=== PATIENT | male | born 1955 | race Caucasian/White ===

== ENCOUNTER → 2017-07-31 | Day surgery (SDC) | payer OTHER ==
[~2017-07-31] VITALS: Ht 182.9 cm; Wt 83.9 kg
[2017-07-31 06:59] VITALS: BP 145/68
[2017-07-31 10:16] VITALS: BP 114/63
== END | disposition home or self-care (01) ==
LOC: DS 06:37 → GI 06:37 → OR 07:30
PROVIDERS: Internal Medicine Gastroenterology
PROC: 0DJD8ZZ Inspection of Lower Intestinal Tract, Via Natural or Artificial Opening Endoscopic (ICD-10-PCS; principal; 2017-07-31 07:30)
DX: Z12.11 Encounter for screening for malignant neoplasm of colon (principal); Q43.8 Other specified congenital malformations of intestine; K64.8 Other hemorrhoids
CPT/HCPCS: 45378; J1200; J1610; J2250; J2310; J3010; J3490

== ENCOUNTER 2018-03-16 16:05 | Emergency (ER) | payer OTHER ==
[~2018-03-16] VITALS: Ht 182.9 cm; Wt 88.5 kg
[2018-03-16 16:08] VITALS: BP 117/73; Ht 182.9 cm; Wt 88.5 kg
== END 2018-03-16 17:11 | disposition other institution (70) ==
LOC: ED 16:05
DX: S60.222A Contusion of left hand, initial encounter (principal); S80.212A Abrasion, left knee, initial encounter; X58.XXXA Exposure to other specified factors, initial encounter; Y93.89 Activity, other specified; Y92.89 Other specified places as the place of occurrence of the external cause; Y99.8 Other external cause status

== ENCOUNTER 2018-03-16 16:05 | Emergency (ER) | payer OTHER | END 2018-03-16 17:11 | disposition other institution (70) | LOC: ED 16:05 | DX: Z02.89 Encounter for other administrative examinations (principal) ==